=== PATIENT | female | born 1990 | race Caucasian/White ===

== ENCOUNTER → 2017-01-21 | Outpatient (CLI) | payer OTHER ==
[~2017-01-21] MED LIST: FERR50TA3; IBUP-1050 PO; PREN1TAB29
== END | disposition home or self-care (01) ==
LOC: C.LAB1850 10:33
PROVIDERS: ATTEND Obstetrics & Gynecology
DX: N91.2 Amenorrhea, unspecified (principal)

== ENCOUNTER → 2017-01-21 | Outpatient (CLI) | payer OTHER | END | disposition home or self-care (01) | LOC: C.LAB 09:13 | PROVIDERS: ATTEND Physician Assistant | DX: R94.6 Abnormal results of thyroid function studies (principal) ==

== ENCOUNTER → 2017-01-29 | Outpatient (CLI) | payer OTHER | END | disposition home or self-care (01) | LOC: C.LAB1850 10:08 | PROVIDERS: ATTEND Obstetrics & Gynecology | DX: R94.6 Abnormal results of thyroid function studies (principal) ==

== ENCOUNTER → 2017-02-10 | Outpatient (CLI) | payer OTHER ==
[2017-02-13 11:40] LABS: CHLAMYDIA TRACH RNA*** NOT DETECTED (NOT DETECTED); GC (NEIS GONORRHOEAE)RNA** NOT DETECTED (NOT DETECTED)
== END | disposition home or self-care (01) ==
LOC: C.LABSPEC 16:18
PROVIDERS: ATTEND Obstetrics & Gynecology
DX: Z34.82 Encounter for supervision of other normal pregnancy, second trimester (principal)

== ENCOUNTER → 2017-02-10 | Outpatient (CLI) | payer OTHER ==
[2017-02-10 14:42] LABS: BASO % 0.1 %; BASO ABS # 0.01 K/uL (0-0.2); COMPLETE YES; EOS % 1.6 %; HEMATOCRIT 33.1 % (37-47); IG% 0.3 %; LYMPH % 15.7 %; LYMPH ABS # 1.92 K/uL (1.2-3.4); MEAN CELL VOLUME 83.8 fL (80-100); MEAN CORPUSCULAR HEMOGLOBIN 28.6 pg (25-34); MEAN CORPUSCULAR HGB CONC 34.1 g/dl (32-36); MEAN PLATELET VOLUME 10.5 fL (7.4-10.4); MONO % 6.4 %; NEUT % 75.9 %; PLATELET COUNT 254 K/uL (130-400); RED BLOOD COUNT 3.95 M/uL (4.2-5.4); WHITE BLOOD COUNT 12.24 K/uL (4.8-10.8)
== END | disposition home or self-care (01) ==
LOC: C.LAB1850 12:48
PROVIDERS: ATTEND Obstetrics & Gynecology
DX: O09.32 Supervision of pregnancy with insufficient antenatal care, second trimester (principal)

== ENCOUNTER → 2017-04-03 | Outpatient (CLI) | payer OTHER ==
[2017-04-03 12:40] LABS: HEMATOCRIT 32.2 % (37-47)
[2017-04-03 12:48] LABS: URINE APPEARANCE CLEAR (CLEAR); URINE BILIRUBIN NEG (NEG); URINE COLOR YELLOW; URINE EPITHELIAL CELL AUTO >30 /lpf (0-5); URINE NITRITE NEG (NEG); URINE SPECIFIC GRAVITY 1.024 (1.000-1.030); UROBILINOGEN NEG (NEG)
[2017-04-03 13:01] LABS: MANUAL MICROSCOPIC REQUIRED? NO; REVIEW REQ? NO
[2017-04-03 13:50] LABS: THYROID STIMULATING HORMONE 2.8 uIu/ml (0.300-4.500)
== END | disposition home or self-care (01) ==
LOC: C.LAB1850 11:42
PROVIDERS: ATTEND Obstetrics & Gynecology
DX: O99.280 Endocrine, nutritional and metabolic diseases complicating pregnancy, unspecified trimester (principal); Z3A.00 Weeks of gestation of pregnancy not specified; E03.9 Hypothyroidism, unspecified; O09.33 Supervision of pregnancy with insufficient antenatal care, third trimester

== ENCOUNTER → 2017-04-15 | Outpatient (CLI) | payer OTHER ==
[2017-04-15 13:54] LABS: THYROID STIMULATING HORMONE 2.53 uIu/ml (0.300-4.500)
== END | disposition home or self-care (01) ==
LOC: C.LAB1850 12:07
PROVIDERS: ATTEND Obstetrics & Gynecology
DX: O99.280 Endocrine, nutritional and metabolic diseases complicating pregnancy, unspecified trimester (principal)

== ENCOUNTER → 2017-05-15 | Outpatient (CLI) | payer OTHER | END | disposition home or self-care (01) | LOC: C.LABSPEC 17:02 | PROVIDERS: ATTEND Obstetrics & Gynecology | DX: O09.33 Supervision of pregnancy with insufficient antenatal care, third trimester (principal) ==

== ENCOUNTER 2017-05-19 07:45 | Inpatient (IN) | payer OTHER ==
[~2017-05-19] VITALS: Ht 165.1 cm; Wt 103.6 kg
[~2017-05-19 07:45] MED LIST changes: -FERR50TA3; -PREN1TAB29
[2017-05-19] MEDS ORDERED: LACTATED RINGER'S 1000ML 1,000 ML IV PRN (07:59)
[2017-05-19] MEDS ORDERED: LACTATED RINGER'S 1000ML 1,000 ML IV SCH (07:59)
[2017-05-19 09:22] LABS: MEAN CELL VOLUME 82.7 fL (80-100); MEAN CORPUSCULAR HEMOGLOBIN 27.8 pg (25-34); MEAN CORPUSCULAR HGB CONC 33.6 g/dl (32-36); MEAN PLATELET VOLUME 9.8 fL (7.4-10.4); PLATELET COUNT 194 K/uL (130-400); RED BLOOD COUNT 3.99 M/uL (4.2-5.4); WHITE BLOOD COUNT 10.33 K/uL (4.8-10.8)
[2017-05-19 09:53] LABS: ALB/GLOB RATIO 0.7 (0.9-2); ALKALINE PHOSPHATASE 101 U/L (45-117); ALT/SGPT 15 U/L (12-78); AST/SGOT 9 U/L (15-37); BLOOD UREA NITROGEN 12 mg/dl (7-18); BUN/CREATININE RATIO 17.9 (10-20); CALCIUM 9.4 mg/dl (8.5-10.1); CARBON DIOXIDE 20 mmol/L (21-32); CHLORIDE 108 mmol/L (98-107); CREATININE 0.67 mg/dl (0.60-1.20); GLUCOSE 85 mg/dl (70-99); POTASSIUM 3.9 mmol/L (3.5-5.1); SODIUM 137 mmol/L (136-145)
[2017-05-19 11:16] VITALS: Ht 165.1 cm; Wt 103.6 kg
[2017-05-19] MEDS ORDERED: PREN1TAB29 (11:21)
[2017-05-19] MEDS ORDERED: FERR50TA3 (11:21)
[2017-05-19] MEDS ORDERED: LACTATED RINGER'S 1000ML 500 ML IV PRN (12:26)
[2017-05-19] MEDS ORDERED: OXYTOCIN 30 UNITS/500ML NSS IV PRN ×2 (12:30→19:30)
[2017-05-19] MEDS ORDERED: CALCIUM CARBONATE 500 MG CHEWABLE PO PRN (18:30)
[2017-05-19] MEDS ORDERED: IBUPROFEN 600 MG TAB ONE (19:28)
--- NOTE | 2017-05-19 19:29 | Vaginal Delivery Summary ---
Vaginal Delivery Summary VAGINAL DELIVERY SUMMARY The patient progressed to complete without anesthesia. She began to push and spontaneously vaginally delivered a viable male in the cephalic presentation. The head delivered in the Right Occiput Anterior position, followed by the anterior and then posterior shoulders, followed by the body. The baby was placed on mother's abdomen and a spontaneous cry was heard. There was no nuchal cord. The cord was doubly clamped and cut and a segment was retained. Cord blood was obtained. The placenta delivered spontaneously intact with a three vessel cord. Pitocin was given and the uterus became firm. The uterus/vagina were swept of all clots and debris. The cervix, vagina and perineum were inspected and no lacerations were noted. Excellent hemostasis noted. Mother and baby recovered well in the room. Sponge and instrument counts correct x 2. EBL 300ml Findings: viable male , apgars 8/9. Weight pending.
[2017-05-19] MEDS ORDERED: LANOLIN OINT EXT PRN ×2 (19:30)
[2017-05-19] MEDS ORDERED: IBUPROFEN 600 MG TAB PO PRN (19:30)
[2017-05-19] MEDS ORDERED: SUPERCREAM 0.870 % 15GM JAR EXT PRN (19:30)
[2017-05-19] MEDS ORDERED: BENZOCAINE 20% AER SPR 82.5 GM CAN EXT PRN (19:30)
[2017-05-19] MEDS ORDERED: HYDROCORTISONE ACETATE 25 MG SUPP PR PRN (19:30)
[2017-05-19] MEDS: DOCUSATE SODIUM 100 MG CAP PO SCH (20:00)
[2017-05-19 21:30] VITALS: BP 132/84; PULSE 82; TEMP 37; O2SAT 97
[2017-05-19 23:35] VITALS: BP 133/90; PULSE 76; TEMP 36.9; O2SAT 98
[2017-05-20] MEDS: OXYCODONE/ACETAMINOPHEN 5-325 TAB PO PRN ×3 (00:14→19:25)
[2017-05-20] MEDS ORDERED: CALCIUM CARBONATE 500 MG CHEWABLE PO PRN (02:45)
[2017-05-20 03:10] VITALS: BP 129/85; PULSE 76; TEMP 37; O2SAT 96
--- NOTE | 2017-05-20 06:36 | OB/GYN Progress Note ---
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 Subjective conversation w/ patient, conversation w/ family, physical exam, chart review, lab review Ambulation: ambulating normally Voiding: no voiding problems Passing Gas: Yes (No BM yet) Diet Tolerance: Regular Diet Lochia: Small (Single small clot ) Feeding Type: Breast Feeding (and bottle feeding) Pain: Low abdomen cramping only. Review of Systems Constitutional: No fever, No chills Respiratory: No cough, No shortness of breath Cardiac: No chest pain Abdomen: + pain (cramping only), + nausea (minimal, no impact on PO food), No vomiting, No diarrhea, No constipation Female : No dysuria Objective Vital Signs Date Time Temp Pulse Resp B/P (MAP) Pulse Ox O2 Delivery O2 Flow Rate FiO2 05/20/17 03:10 37.0 76 18 129/85 (100) 96 Room Air 05/19/17 23:35 98 Room Air 05/19/17 23:35 36.9 76 16 133/90 (104) 98 Room Air 05/19/17 21:30 97 Room Air 05/19/17 21:30 37.0 82 18 132/84 (100) 97 Room Air Physical Exam General Appearance: WELL-APPEARING, WD/WN, NO APPARENT DISTRESS Respiratory/Chest: lungs clear, normal breath sounds, no respiratory distress Cardiovascular: regular rate, rhythm, no murmur Abdomen: normal bowel sounds, + tenderness (mild appropriate fundal ttp only) Fundus: Firm (approx 2 fingers down from umbilicus), Tender Extremities: normal range of motion, non-tender Laboratory Results Last 24 Hours Test 05/19/17 09:05 05/20/17 04:44 White Blood Count 10.33 K/uL Red Blood Count 3.99 M/uL Hemoglobin 11.1 g/dL Hematocrit 33.0 % Mean Corpuscular Volume 82.7 fL Mean Corpuscular Hemoglobin 27.8 pg Mean Corpuscular Hemoglobin Concent 33.6 g/dl RDW Standard Deviation 42.4 fL RDW Coefficient of Variation 13.9 % Platelet Count 194 K/uL Mean Platelet Volume 9.8 fL Sodium Level 137 mmol/L Potassium Level 3.9 mmol/L Chloride Level 108 mmol/L Carbon Dioxide Level 20 mmol/L Anion Gap 9.0 mmol/L Blood Urea Nitrogen 12 mg/dl Creatinine 0.67 mg/dl Estimated GFR () 139.6 Estimated GFR (Non- 120.5 BUN/Creatinine Ratio 17.9 Random Glucose 85 mg/dl Calcium Level 9.4 mg/dl Total Bilirubin 0.2 mg/dl Aspartate Amino Transf (AST/SGOT) 9 U/L Alanine Aminotransferase (ALT/SGPT) 15 U/L Alkaline Phosphatase 101 U/L Total Protein 6.7 gm/dl Albumin 2.7 gm/dl Globulin 4.0 gm/dl Albumin/Globulin Ratio 0.7 Assessment and Plan Post- Day Number: 1 Continue Routine Care: 27yo s/p IOL for preeclampsia, now PPD #1. - Blood type A neg. GBS negative. Rubella immune. - Vital signs reviewed and stable. Max ranges SBP 133 DBP 90. - Pain controlled with percocet and ibuprofen. - No leg swelling or tenderness on calf palpation. Encourage ambulation. - Encourage breast feeding. - Hemoglobin: 11, this morning pending. Bleeding has improved. Continue to monitor clinically. - Previously declined rhogam (partner Rh neg). - Continue routine post-vaginal delivery care. - Pt agreed with above plan, all current questions answered. Layton Carey MD, PGY1 Family Medicine
[2017-05-20 07:10] VITALS: BP 132/90; PULSE 82; TEMP 37; O2SAT 97
[2017-05-20 07:13] LABS: HEMATOCRIT 33.6 % (37-47)
--- NOTE | 2017-05-20 07:59 | Discharge Instructions ---
Discharge Instructions Date of Service May 20, 2017. Admission Reason for Admission: Induction Discharge Discharge Diagnosis / Problem: Recovery from vaginal delivery Discharge Goals Goal(s): Routine recovery after delivery Medications Continue Dispensed Medications: supercream, dermaplast, tucks, lansinoh Activity Recommendations Activity Limitations: per Instructions/Follow-up section . Instructions / Follow-Up Instructions / Follow-Up ACTIVITY RECOMMENDATIONS: * Gradual return to full activity over the next 2-3 weeks. * No lifting - nothing heavier than baby over the next 2-3 weeks. * Do not engage in vigorous exercise, sexual activity or sports until cleared by your physician. * Do not drive or operate any motorized equipment until cleared by your physician. * You may shower/bathe daily. MEDICATIONS: For discomfort or pain, you may use Acetaminophen (Tylenol), Ibuprofen (Advil), or Naproxen (Aleve) following the package directions. For constipation you may use Colace following the package directions. BREAST CARE: If you are not breast feeding: * Wear a supportive bra 24 hours a day for one to two weeks. * Avoid stimulating your breasts and nipples as much as possible during the first few weeks after delivery. * When taking a shower, have the warm water hit your back, not breasts. * When your breasts feel full, apply ice packs. Usually three to four times a day helps ease the discomfort. * Take a mild pain medication (Tylenol / Motrin) when you are uncomfortable. If breast feeding: * Use breast milk to lubricate nipples. Lansinoh cream may be used for sore nipples. You do not need to remove cream prior to breast feeding. If using a different brand of cream, check the label for directions regarding removal of cream prior to nursing. * Wear a supportive bra. * If having problems with breasts or breast feeding, call a testing consultant or your health care provider. EPISIOTOMY CARE: After delivery, if you have an episiotomy (stitches), the following steps will ease discomfort and aid healing. * For the first 24 hours after delivery, place ice packs next to your episiotomy to help reduce swelling. * After the first 24 hour-period, sitz baths, either portable or in the tub, are suggested. A shower with a shower arm sprayed over the episiotomy may be comforting. * Mireya care should be done after each voiding and bowel movement. Squirt warm water from a plastic bottle over the perineum (region of the body between the anus and urinary opening) and pat dry. * Use Dermoplast to ease discomfort. Shake container. [place] directly over the episiotomy. Place a Tucks on a clean sanitary pad next to your episiotomy. SPECIAL CARE INSTRUCTIONS: When you are discharged from the hospital, it is important for you to follow the instructions listed below: * During the first week at home, you should be able to care for yourself and your baby. In addition, the usual light household activities are encouraged. * Limit your activities to the way you feel. Do not try to clean the house or move furniture. Be sensible. * If you actively engage in sports and have done so up until the time of your delivery, you may resume these activities as soon as you feel able. This may take up to one month or even longer. Use good judgment. * Continue to take your vitamins for at least six weeks after the of your baby. * Your diet need not be limited unless you were on a special diet before your delivery. Breast-feeding mothers need around 2500 calories per day and at least 64-80 ounces of fluid per day (8 to 10 glasses). * You should eat foods from the four major food groups. Crash diets or fad diets are to be avoided. Eating lean meats, fresh fruits and vegetables, low-fat dairy products, high fiber foods and a regular exercise program, will help you get back to your pre- weight without putting your health at risk. * Constipation is sometimes a problem after delivery. Take a mild laxative as needed. If breast feeding, Milk of Magnesia is acceptable to use. You may use a suppository or Fleets enema if no episiotomy. * A daily shower or tub bath is suggested. Be sure to thoroughly and gently dry the perineum. * A bloody vaginal discharge will usually continue until around four weeks post . A small amount of bleeding may continue for as long as six weeks. Vaginal discharge changes from the bright red bleeding after delivery to pink then brownish and finally yellowish-pink before becoming white and disappearing. * Bleeding may increase with activity. Your first period may come in 4-8 weeks. If you are breast feeding, your period may be delayed even longer. * [place] (sex) can begin whenever both you and your partner feel comfortable and do not have any form of genital infection. It is recommended that you wait at least six weeks for internal and external healing to occur. If you have questions, please talk to your health care practitioner. A condom should be used to prevent infection and . * Foreplay, gentle intercourse and lubrication is very important the first several times to prevent pain. A water-based lubricant such as K-Y jelly or Astroglide may be used. * If you have RH negative blood and your baby is RH positive, you will receive RHOGAM by injection prior to discharge. The nurse will give you a card to keep with you that has the date and place that you received RHOGAM after delivery. * During your care, you had a Rubella screen done to check for the presence of rubella antibodies in your blood. If your test was negative, you will receive a Rubella vaccine prior to discharge. This vaccine may cause a fever, soreness at the injection site and flu-like symptoms. If these symptoms persist, notify your health care practitioner. is not advised for one month after a Rubella vaccine. * Verbalizes understanding of car seat law as reviewed with patient nursing. * Car Seat hand-out given and reviewed with patient by nursing. * Shaken baby information reviewed with patient by nursing. Call you doctor if: * Heavy bleeding (saturating several pads an hour) or passing clots the size of your fist. * A fever >101 degrees F (38.3 degrees C) on two occasions four hours apart and /or chills. * Unusual pain in the pelvic or vaginal areas. * "Baby Blues" lasting longer than two weeks. If you have any questions or concerns, call your health care practitioner at . FOLLOW UP VISIT: * Please call the office at to schedule a 6 week examination. It is important you keep this appointment. It is important for you to make arrangements for either yearly or twice yearly check-ups thereafter. Current Hospital Diet Patient's current hospital diet: Regular OB Diet Discharge Diet Recommended Diet: Regular OB Diet Pending Studies Studies pending at discharge: no Medical Emergencies . Who to Call and When: Medical Emergencies: If at any time you feel your situation is an emergency, please call 911 immediately. . Non-Emergent Contact Non-Emergency issues call your: Sales Consulting Director . . "Provider Documentation" section prepared by Layton Carey. . VTE Core Measure Inpt VTE Proph given/why not?: SCD's
[2017-05-20] MEDS: DOCUSATE SODIUM 100 MG CAP PO SCH ×2 (09:07→19:26)
[2017-05-20 12:00] VITALS: BP 133/82; PULSE 79; TEMP 37
[2017-05-20 15:30] VITALS: BP 140/90; PULSE 77; TEMP 36.9
[2017-05-20] MEDS ORDERED: BISACODYL 5 MG TABEC PO SCH (20:00)
[2017-05-20 20:30] VITALS: BP 134/87; PULSE 77; TEMP 36.9
== END 2017-05-20 20:50 | disposition home or self-care (01) | DRG 775 ==
LOC: C.LD 07:45 → C.OBG 21:01
PROVIDERS: ADMIT Obstetrics & Gynecology; ATTEND Obstetrics & Gynecology
PROC: 10E0XZZ Delivery of Products of Conception, External Approach (ICD-10-PCS; principal; 2017-05-19)
PROC: 10907ZC Drainage of Amniotic Fluid, Therapeutic from Products of Conception, Via Natural or Artificial Opening (ICD-10-PCS; principal; 2017-05-19)
DX: O14.94 Unspecified pre-eclampsia, complicating childbirth (principal); O24.429 Gestational diabetes mellitus in childbirth, unspecified control; O99.330 Smoking (tobacco) complicating pregnancy, unspecified trimester; F17.210 Nicotine dependence, cigarettes, uncomplicated; Z37.0 Single live birth; Z3A.37 37 weeks gestation of pregnancy

== ENCOUNTER → 2017-07-23 | Outpatient (CLI) | payer OTHER ==
[~2017-07-23] MED LIST changes: +FERR50TA3; +PREN1TAB29
== END | disposition home or self-care (01) ==
LOC: C.PAPS 08:43
PROVIDERS: ATTEND Obstetrics & Gynecology
DX: Z39.2 Encounter for routine postpartum follow-up (principal)